=== PATIENT | male | born 1995 | race Caucasian/White ===

== ENCOUNTER 2019-02-13 22:03 | Observation (INO) | payer BC ==
[~2019-02-13] VITALS: Ht 182.9 cm; Wt 75.7 kg
[2019-02-13 22:26] LABS: BASO # 0.1 (0.02-0.10); EOS # 0.3 (0.04-0.40); EOS % 2.9 % (0.0-4.0); HEMATOCRIT 45.6 % (42.0-52.0); HEMOGLOBIN 15.6 g/dL (13.5-18.0); MEAN CELL VOLUME 93 fl (78-100); MEAN CORPUSCULAR HEMOGLOBIN 32 pg (27-31); MEAN CORPUSCULAR HGB CONC 34 g/dL (33-37); MEAN PLATELET VOLUME 10.6 fl (7.4-10.4); MONO # 1.1 (0.20-0.80); NEU # 3.5 (1.40-6.50); PLATELET COUNT 348 K/mm3 (130-400); RED BLOOD COUNT 4.93 M/mm3 (4.20-5.60); RED CELL DISTRIBUTION WIDTH 12.3 % (11.5-14.5); WHITE BLOOD COUNT 9.7 K/mm3 (4.8-10.8)
[2019-02-13 22:28] LABS: LYMPH# 4.7 (1.50-4.00)
[2019-02-13 22:36] LABS: ALBUMIN 4.9 g/dL (3.5-5.0); CALCIUM 9.1 mg/dL (8.4-10.2); POTASSIUM 3.3 mmol/L (3.6-5.0); TOTAL BILIRUBIN 0.8 mg/dL (0.2-1.3); TOTAL PROTEIN 7.5 g/dL (6.3-8.2)
[2019-02-13 23:14] LABS: PROTHROMBIN TIME 10.1 SECONDS (9.0-12.0)
[2019-02-14 00:59] VITALS: BP 160/72
--- NOTE | 2019-02-14 00:59 | NUR ---
PATIENT ADMITTED TO OBSERVATION ROOM 203 AT THIS TIME. PATIENT DOES NOT APPEAR TO BE IN ANY OBVIOUS DISTRESS AT THIS TIME. PATIENT IS DROWSY BUT EASILY AROUSABLE. PATIENT REQUESTS MORE PAIN MEDICATION AFTER THE TRANSFER FROM COT TO BED. PATIENT HAS DRESSING SECURED WITH AUNDREA WRAP INTACT TO RIGHT UPPER THIGH. NO ACTIVE BLEEDING OBSERVED. IV TO LAC REMAINS IN PLACE AND IS SALINE LOCKED. IV TO RFA/AC AREA CONTINUES TO INFUSE LR AT 125 ML/HR. PATIENT THANKS STAFF PROFUSELY. PATIENT IS A X1 ASSIST WITH TRANSFERS. BED ALARM ARMED. CALL LIGHT WITHIN REACH. MILD ROOM ORIENTATION PROVIDED DUE TO PATIENT BEING SLEEPY. CLOSE MONITORING AND HOURLY ROUNDING IMPLEMENTED.
[2019-02-14 06:24] VITALS: BP 164/104
[2019-02-14 06:54] LABS: HEMATOCRIT 45.3 % (42.0-52.0); HEMOGLOBIN 15.3 g/dL (13.5-18.0); MEAN CELL VOLUME 93 fl (78-100); MEAN CORPUSCULAR HEMOGLOBIN 31 pg (27-31); MEAN CORPUSCULAR HGB CONC 34 g/dL (33-37); MEAN PLATELET VOLUME 10.5 fl (7.4-10.4); PLATELET COUNT 274 K/mm3 (130-400); RED BLOOD COUNT 4.89 M/mm3 (4.20-5.60); RED CELL DISTRIBUTION WIDTH 12.5 % (11.5-14.5); WHITE BLOOD COUNT 11.9 K/mm3 (4.8-10.8)
[2019-02-14 06:57] LABS: CALCIUM 9.3 mg/dL (8.4-10.2); POTASSIUM 4.2 mmol/L (3.6-5.0)
[2019-02-14 07:06] LABS: BAND 3 % (0-10); LYMPHOCYTE 13 % (20-51); MONOCYTE 7 % (3-10); NEUTROPHILS 76 % (42-75)
--- NOTE | 2019-02-14 09:10 | NUR ---
IRAIDA VILLARREAL AT BEDSIDE. DRESSING TO RT THIGH REMOVED. BRIGHT RED BLOOD NOTED TO GAUZE DRESSING. NO ACTIVE BLEEDING. CENTRAL PORTION OF WOUND SITE DOES OOZE DARK RED BLOOD WITH PALPATION. EDUCATION PROVIDED TO PATIENT BY IRAIDA VILLARREAL REGARING WOUND HEALING. REDRESS WOUND WITH XEROFORM GAUZE, BULKY 4X4 GAUZE DRESSING, GAUZE WRAP, AND AUNDREA WRAP. SITE PAINFUL WITH DRESSING CHANGE. SURROUNDING SKIN APPEARS NORMAL AND WITHOUT S/S OF INFECTION. PATIENT FEELS COMFORTABLE TAKING CARE OF WOUND AT HOME. HE IS ALSO ABLE TO TRAVEL TO PHYSICIAN APPOINTMENTS.
[2019-02-14] MEDS ORDERED: AMOXICILLIN AND1 TA2 PO (09:25)
[2019-02-14] MEDS ORDERED: HYDROCODONE BIT1 T45 PO (09:26)
--- NOTE | 2019-02-14 10:14 | NUR ---
IRAIDA VILLARREAL SPEAKS WITH TRAUMA SURGEON AT [facility] REGARDING ELEVATION OF [facility]. IT IS RECOMMENDED THAT PATIENT TRANSFER TO [facility] FOR [place].
[2019-02-14 10:27] VITALS: BP 138/81
--- NOTE | 2019-02-14 10:57 | NUR ---
TRANSFER CONSENT SIGNED BY PATIENT. [facility] CONTACTED FOR TRANSFER.
--- NOTE | 2019-02-14 12:00 | NUR ---
PATIENT LEFT AT 1156. RECEIVING NURSE CURRENTLY WITH A PATIENT AND WILL CALL BACK FOR REPORT. PATIENT ALERT AND TALKING WHEN HE LEFT WITH EMS.
--- NOTE | 2019-02-14 12:19 | NUR ---
REPORT PROVIDED TO DC AT [facility].
== END 2019-02-14 11:56 | disposition short-term general hospital (02) ==
LOC: ED 22:03 → MED/SURG 02-14 00:59
PROVIDERS: ADMIT Nurse Practitioner Family
DX: S71.101A Unspecified open wound, right thigh, initial encounter (principal); X95.01XA Assault by airgun discharge, initial encounter; E87.6 Hypokalemia
CPT/HCPCS: 90715; G0378; J2405; J3010; J3490; J7120; Q9967

== ENCOUNTER 2019-02-19 14:36 | Emergency (ER) | payer BC ==
[~2019-02-19] VITALS: Ht 180.3 cm; Wt 70.5 kg
[~2019-02-19 14:36] MED LIST: AMOXICILLIN AND1 TA2 PO; HYDROCODONE BIT1 T45 PO
[2019-02-19] MEDS ORDERED: ADVIL 200MG TA200 MG PO (14:48)
[2019-02-19] MEDS ORDERED: AMOXICILLIN AND1 TA2 PO (15:00)
[2019-02-19] MEDS ORDERED: NORCO 325 MG-51 TA1 PO (15:33)
[2019-02-19 15:45] VITALS: BP 138/86
== END 2019-02-19 15:46 | disposition home or self-care (01) ==
LOC: ED 14:36
DX: S71.101D Unspecified open wound, right thigh, subsequent encounter (principal); W34.00XD Accidental discharge from unspecified firearms or gun, subsequent encounter